=== PATIENT | female | born 1980 | race African-American/Black ===

== ENCOUNTER 2018-11-07 07:09 | Emergency (ER) | payer OTHER ==
[~2018-11-07] VITALS: Ht 165.1 cm; Wt 84.0 kg
[2018-11-07 07:55] VITALS: BP 141/88
[2018-11-07 09:08] LABS: CLARITY URINE CLEAR (CLEAR); COLOR URINE YELLOW (YELLOW); KETONES URINE 1+ (NEGATIVE); LEUKOCYTE ESTERASE URINE NEGATIVE (NEGATIVE); NITRITE URINE NEGATIVE (NEGATIVE); OCCULT BLOOD URINE NEGATIVE (NEGATIVE); PH URINE 5.5 (4.5-8.0); PROTEIN URINE NEGATIVE (NEGATIVE); SPECIFIC GRAVITY URINE 1.018 (1.005-1.030); UROBILINOGEN URINE 0.2 E.U./dL (0.2-1.0)
== END 2018-11-07 08:30 | disposition left against medical advice (07) ==
LOC: ER 07:09
DX: R11.2 Nausea with vomiting, unspecified (principal); R10.13 Epigastric pain; Z53.21 Procedure and treatment not carried out due to patient leaving prior to being seen by health care provider
CPT/HCPCS: 81025

== ENCOUNTER 2020-07-20 16:11 | Emergency (ER) | payer MEDICAID, OTHER ==
[~2020-07-20] VITALS: Ht 162.6 cm; Wt 68.0 kg
[2020-07-20] MEDS ORDERED: PREDNISONE 20MG TABLET PO STA (16:28)
[2020-07-20] MEDS ORDERED: IPRATROPIUM BROMIDE (0.02%) 0.5MG/2.5ML NEB HHN STA (16:28)
[2020-07-20] MEDS ORDERED: ALBUTEROL (0.083%) 2.5MG/3ML NEB HHN STA (16:28)
[2020-07-20 18:20] VITALS: BP 142/81
== END 2020-07-20 18:24 | disposition home or self-care (01) ==
LOC: ER 16:11
DX: J45.901 Unspecified asthma with (acute) exacerbation (principal); Z88.0 Allergy status to penicillin
CPT/HCPCS: 71045; 94640; 99283; J7512; Z7610

== ENCOUNTER 2022-04-24 18:53 | Emergency (ER) | payer MEDICAID ==
[~2022-04-24] VITALS: Ht 167.6 cm; Wt 82.0 kg
[2022-04-24] MEDS ORDERED: LIDOCAINE HCL/EPINEPHRINE 1%-EPI 1:100,000 20 ML VIAL INFIL ONE (19:45)
[2022-04-24] MEDS ORDERED: LIDOCAINE HCL/EPINEPHRINE 1%-EPI 1:100,000 10 ML VIAL INFIL SCH (20:00)
[2022-04-24] MEDS ORDERED: TOPUD MT (20:03)
[2022-04-24] MEDS ORDERED: CLIN-194 MT (20:03)
[2022-04-24 22:01] VITALS: BP 125/78
== END 2022-04-24 22:02 | disposition home or self-care (01) ==
LOC: ER 18:53
DX: L02.212 Cutaneous abscess of back [any part, except buttock and flank] (principal); J45.909 Unspecified asthma, uncomplicated; Z88.0 Allergy status to penicillin
CPT/HCPCS: 10060; 99283; J3490; Z7610

== ENCOUNTER 2022-06-22 10:34 | Emergency (ER) | payer MEDICAID ==
[~2022-06-22] VITALS: Ht 167.6 cm; Wt 77.5 kg
[~2022-06-22 10:34] MED LIST: CLIN-194 MT; TOPUD MT
[2022-06-22] MEDS ORDERED: KETOROLAC 60MG/2ML VIAL IM ONE (11:45)
[2022-06-22 12:25] VITALS: BP 118/75
[2022-06-22] MEDS ORDERED: CYCL10TA21 MT (13:06)
== END 2022-06-22 13:17 | disposition home or self-care (01) ==
LOC: ER 10:45
DX: M54.18 Radiculopathy, sacral and sacrococcygeal region (principal); J45.909 Unspecified asthma, uncomplicated; Z88.0 Allergy status to penicillin; Z98.890 Other specified postprocedural states
CPT/HCPCS: 72220; 81025; 96372; 99283; J1885

== ENCOUNTER 2023-01-19 10:57 | Emergency (ER) | payer MEDICAID ==
[~2023-01-19] VITALS: Ht 165.1 cm; Wt 72.3 kg
[~2023-01-19 10:57] MED LIST changes: +CYCL10TA21 MT
[2023-01-19 11:25] LABS: BASOPHILS % 0.6 % (0.0-2.0); EOSINOPHILS % 0.4 % (0.0-5.0); HEMATOCRIT. 41.2 % (36.0-48.0); HEMOGLOBIN. 14.1 g/dL (12.0-16.0); LYMPHOCYTES % 31.7 % (20.0-50.0); MEAN CORPUSCULAR HEMOGLOBIN 32.6 pg (28.0-32.0); MEAN CORPUSCULAR VOLUME 95.6 fL (81.0-99.0); MEAN PLATELET VOLUME 7.6 fl (7.4-10.4); NEUTROPHILS % 61.3 % (40.0-76.0); PLATELET 294 x1000/uL (130-400); RED BLOOD CELL COUNT 4.31 mill/uL (4.2-5.4); RED CELL DISTRIBUTION WIDTH 13.1 % (11.6-14.6)
[2023-01-19 11:34] LABS: CHLORIDE 99 mEq/L (98-107)
[2023-01-19 12:00] LABS: CLARITY URINE CLEAR (CLEAR); COLOR URINE YELLOW (YELLOW); KETONES URINE 2+ (NEGATIVE); LEUKOCYTE ESTERASE URINE NEGATIVE (NEGATIVE); NITRITE URINE NEGATIVE (NEGATIVE); OCCULT BLOOD URINE NEGATIVE (NEGATIVE); PH URINE 6.5 (4.5-8.0); PROTEIN URINE NEGATIVE (NEGATIVE); SPECIFIC GRAVITY URINE 1.034 (1.005-1.030); UROBILINOGEN URINE 0.2 E.U./dL (0.2-1.0)
[2023-01-19] MEDS ORDERED: KETOROLAC 60MG/2ML VIAL IM ONE (13:00)
[2023-01-19] MEDS ORDERED: OMEP40CA20 MT (14:07)
[2023-01-19 14:45] VITALS: BP 150/85
== END 2023-01-21 16:32 | disposition home or self-care (01) ==
LOC: ER 10:58
DX: R10.32 Left lower quadrant pain (principal); J45.909 Unspecified asthma, uncomplicated; Z98.890 Other specified postprocedural states
CPT/HCPCS: 36415; 74176; 80053; 81003; 81025; 83690; 85025; 93005; 96372; 99285; J1885

== ENCOUNTER 2023-07-28 02:47 | Inpatient (IN) | payer SELFPAY ==
[~2023-07-28] VITALS: Ht 153.7 cm; Wt 72.6 kg
[~2023-07-28 02:47] MED LIST changes: +OMEP40CA20 MT
[2023-07-28 02:52] VITALS: O2SAT 100
[2023-07-28 03:50] LABS: BASOPHILS % 0.7 % (0.0-2.0); EOSINOPHILS % 0.2 % (0.0-5.0); HEMATOCRIT. 40.4 % (36.0-48.0); HEMOGLOBIN. 13.8 g/dL (12.0-16.0); LYMPHOCYTES % 14.8 % (20.0-50.0); MEAN CORPUSCULAR HGB CONC 34.1 g/dL (31.0-37.0); MEAN CORPUSCULAR VOLUME 96.7 fL (81.0-99.0); MEAN PLATELET VOLUME 8.3 fl (7.4-10.4); MONOCYTES % 3.7 % (2.0-8.0); NEUTROPHILS % 80.6 % (40.0-76.0); PLATELET 300 x1000/uL (130-400); RED BLOOD CELL COUNT 4.18 mill/uL (4.2-5.4); RED CELL DISTRIBUTION WIDTH 13.6 % (11.6-14.6); WHITE BLOOD COUNT 7.3 x1000/uL (4.5-11.0)
[2023-07-28 04:13] LABS: ALANINE AMINOTRANSFERASE 31 IU/L (10-49); ALBUMIN 4.7 g/dL (3.2-4.8); ASPARTATE AMINOTRANSFERASE 31 IU/L (<34); BILIRUBIN TOTAL 0.8 mg/dL (0.1-1.0); CALCIUM 10.4 mg/dL (8.7-10.4); CARBON DIOXIDE 27 mEq/L (21-32); CHLORIDE 99 mEq/L (98-107); CREATININE 0.9 mg/dL (0.6-1.0); GLUCOSE 399 mg/dL (70-105); PROTEIN TOTAL 7.5 g/dL (6.0-8.3); SODIUM 135 mEq/L (136-145); UREA NITROGEN BLOOD 7 mg/dL (9-23)
[2023-07-28 04:24] LABS: CLARITY URINE CLOUDY (CLEAR); COLOR URINE YELLOW (YELLOW); PROTEIN URINE NEGATIVE (NEGATIVE); SPECIFIC GRAVITY URINE 1.046 (1.005-1.030)
[2023-07-28 04:25] LABS: GLUCOSE URINE 3+ (NEGATIVE); KETONES URINE 3+ (NEGATIVE); LEUKOCYTE ESTERASE URINE NEGATIVE (NEGATIVE); NITRITE URINE NEGATIVE (NEGATIVE); OCCULT BLOOD URINE NEGATIVE (NEGATIVE); UROBILINOGEN URINE 0.2 E.U./dL (0.2-1.0)
[2023-07-28 04:26] LABS: BACTERIA URINE NONE SEEN; RBC URINE NONE SEEN /hpf (0-2); SQUAMOUS EPITHELIAL CELL URINE FEW /lpf (RARE/1+); WBC URINE 0-2 /hpf (0-2)
[2023-07-28 04:55] LABS: TROPONIN I HIGH SENSITIVITY < 4 ng/L (3.0-34)
[2023-07-28] MEDS ORDERED: ONDANSETRON HCL 4MG/2ML INJ IV STA (05:19)
[2023-07-28] MEDS ORDERED: KETOROLAC 30MG/ML VIAL IV STA (05:19)
[2023-07-28] MEDS ORDERED: MORPHINE SULFATE 4 MG/ML CPJ (NOT FOR IM USE) IV STA (07:38)
[2023-07-28] MEDS ORDERED: METOCLOPRAMIDE HCL 10MG/2ML VIAL IV ONE (07:45)
[2023-07-28] MEDS ORDERED: SODIUM CHLORIDE 0.9% 1,000 ML IV ONE (07:45)
[2023-07-28] MEDS ORDERED: CLONIDINE 0.1MG TABLET PO PRN (11:15)
[2023-07-28] MEDS ORDERED: IPRATROPIUM/ALBUTEROL 0.5-3(2.5)MG/3ML NEB HHN PRN (11:15)
[2023-07-28] MEDS ORDERED: DEXTROSE 50% WATER 50ML SYRINGE IV PRN (11:15)
[2023-07-28] MEDS ORDERED: DIPHENHYDRAMINE 50MG/ML VIAL IV PRN (11:15)
[2023-07-28] MEDS ORDERED: NALOXONE HCL 0.4MG/ML VIAL IV PRN (11:30)
[2023-07-28 12:00] VITALS: BP 117/77; PULSE 73; RESP 18; TEMP 97.1
[2023-07-28] MEDS: SODIUM CHLORIDE 0.9% 1,000 ML IV SCH (12:14)
[2023-07-28] MEDS: BLOOD SUGAR DIAGNOSTIC STRIP TEST SCH ×3 (12:20→21:00)
[2023-07-28] MEDS: ONDANSETRON HCL 4MG/2ML INJ IV PRN (14:10)
[2023-07-28] MEDS: INSULIN LISPRO 100 UNITS/ML SUBCUT SCH ×3 (14:13→21:00)
[2023-07-28 16:05] VITALS: BP 102/64; PULSE 88; RESP 19; TEMP 97.5
[2023-07-28] MEDS: ACETAMINOPHEN 325MG TABLET PO PRN (18:04)
[2023-07-29] MEDS: ONDANSETRON HCL 4MG/2ML INJ IV PRN ×4 (02:38→21:00)
[2023-07-29] MEDS: SODIUM CHLORIDE 0.9% 1,000 ML IV SCH ×2 (02:38→13:51)
[2023-07-29 04:00] VITALS: BP 123/72; PULSE 91; RESP 19; TEMP 97.7
[2023-07-29] MEDS: ACETAMINOPHEN 325MG TABLET PO PRN (04:57)
[2023-07-29] MEDS: BLOOD SUGAR DIAGNOSTIC STRIP TEST SCH ×3 (07:20→17:20)
[2023-07-29 07:40] LABS: BASOPHILS % 0.7 % (0.0-2.0); EOSINOPHILS % 0.3 % (0.0-5.0); HEMATOCRIT. 39.4 % (36.0-48.0); HEMOGLOBIN. 13.4 g/dL (12.0-16.0); LYMPHOCYTES % 27.3 % (20.0-50.0); MEAN CORPUSCULAR HEMOGLOBIN 32.7 pg (28.0-32.0); MEAN CORPUSCULAR HGB CONC 33.9 g/dL (31.0-37.0); MEAN CORPUSCULAR VOLUME 96.6 fL (81.0-99.0); MEAN PLATELET VOLUME 8.5 fl (7.4-10.4); MONOCYTES % 7.8 % (2.0-8.0); NEUTROPHILS % 63.9 % (40.0-76.0); PLATELET 271 x1000/uL (130-400); RED BLOOD CELL COUNT 4.08 mill/uL (4.2-5.4); RED CELL DISTRIBUTION WIDTH 13.3 % (11.6-14.6); WHITE BLOOD COUNT 5.5 x1000/uL (4.5-11.0)
[2023-07-29 07:42] LABS: ALANINE AMINOTRANSFERASE 27 IU/L (10-49); ALBUMIN 3.9 g/dL (3.2-4.8); ASPARTATE AMINOTRANSFERASE 21 IU/L (<34); BILIRUBIN TOTAL 0.8 mg/dL (0.1-1.0); CALCIUM 9.1 mg/dL (8.7-10.4); CARBON DIOXIDE 28 mEq/L (21-32); CHLORIDE 100 mEq/L (98-107); CREATININE 0.9 mg/dL (0.6-1.0); GLUCOSE 258 mg/dL (70-105); POTASSIUM 4.4 mEq/L (3.5-5.1); PROTEIN TOTAL 6.3 g/dL (6.0-8.3); SODIUM 136 mEq/L (136-145); UREA NITROGEN BLOOD 11 mg/dL (9-23)
[2023-07-29 08:00] VITALS: BP 111/65; PULSE 73; RESP 20; TEMP 98
[2023-07-29] MEDS: INSULIN LISPRO 100 UNITS/ML SUBCUT SCH ×3 (08:23→17:50)
[2023-07-29] MEDS: MORPHINE SULFATE 2 MG/ML CPJ (NOT FOR IM USE) IV PRN ×2 (08:34→13:56)
[2023-07-29 12:26] VITALS: BP 139/73; RESP 18; TEMP 98
[2023-07-29 16:13] VITALS: BP 110/70; PULSE 82; RESP 18; TEMP 98
[2023-07-29 20:00] VITALS: BP 165/87; PULSE 64; RESP 18; TEMP 97
[2023-07-30] VITALS: BP 136/76; PULSE 60; RESP 18; TEMP 98.5
[2023-07-30] MEDS: SODIUM CHLORIDE 0.9% 1,000 ML IV SCH ×2 (03:15→16:35)
[2023-07-30 04:00] VITALS: BP 106/53; PULSE 85; RESP 18; TEMP 97.5
[2023-07-30] MEDS: ONDANSETRON HCL 4MG/2ML INJ IV PRN ×3 (04:12→17:17)
[2023-07-30 06:56] LABS: BASOPHILS % 0.7 % (0.0-2.0); EOSINOPHILS % 0.9 % (0.0-5.0); HEMATOCRIT. 39.7 % (36.0-48.0); HEMOGLOBIN. 13.4 g/dL (12.0-16.0); LYMPHOCYTES % 37.4 % (20.0-50.0); MEAN CORPUSCULAR HEMOGLOBIN 32.7 pg (28.0-32.0); MEAN CORPUSCULAR HGB CONC 33.8 g/dL (31.0-37.0); MEAN CORPUSCULAR VOLUME 96.9 fL (81.0-99.0); MEAN PLATELET VOLUME 8.7 fl (7.4-10.4); MONOCYTES % 6.7 % (2.0-8.0); NEUTROPHILS % 54.3 % (40.0-76.0); PLATELET 264 x1000/uL (130-400); RED BLOOD CELL COUNT 4.09 mill/uL (4.2-5.4); RED CELL DISTRIBUTION WIDTH 13.4 % (11.6-14.6); WHITE BLOOD COUNT 4.6 x1000/uL (4.5-11.0)
[2023-07-30 07:17] LABS: CALCIUM 9.2 mg/dL (8.7-10.4); CARBON DIOXIDE 24 mEq/L (21-32); CHLORIDE 102 mEq/L (98-107); CREATININE 0.8 mg/dL (0.6-1.0); GLUCOSE 210 mg/dL (70-105); SODIUM 136 mEq/L (136-145); UREA NITROGEN BLOOD 7 mg/dL (9-23)
[2023-07-30 08:00] VITALS: BP 105/71; PULSE 79; RESP 20; TEMP 98.8
[2023-07-30] MEDS: INSULIN LISPRO 100 UNITS/ML SUBCUT SCH ×4 (08:09→21:37)
[2023-07-30] MEDS: BLOOD SUGAR DIAGNOSTIC STRIP TEST SCH ×4 (08:17→20:52)
[2023-07-30] MEDS ORDERED: ONDA4TAB50 MT (11:19)
[2023-07-30] MEDS ORDERED: METO-293 MT (11:19)
[2023-07-30] MEDS ORDERED: METF-414 MT (11:19)
[2023-07-30] MEDS ORDERED: INSU100I28 SQ (11:19)
[2023-07-30] MEDS: METOCLOPRAMIDE HCL 10MG/2ML VIAL IV SCH ×2 (11:25→17:24)
[2023-07-30] MEDS: MORPHINE SULFATE 2 MG/ML CPJ (NOT FOR IM USE) IV PRN (12:41)
[2023-07-30] MEDS: METFORMIN HCL 500MG TABLET PO SCH (17:17)
[2023-07-30 20:00] VITALS: BP 116/75; PULSE 80; RESP 18; TEMP 97.1
[2023-07-30] MEDS: INSULIN GLARGINE 100 UNITS/ML SUBCUT SCH (21:38)
[2023-07-31] VITALS: BP 123/70; PULSE 68; RESP 18; TEMP 97.8
[2023-07-31] MEDS: METOCLOPRAMIDE HCL 10MG/2ML VIAL IV SCH ×4 (00:52→17:46)
[2023-07-31 04:00] VITALS: BP 110/64; PULSE 72; RESP 18; TEMP 98.2
[2023-07-31] MEDS: SODIUM CHLORIDE 0.9% 1,000 ML IV SCH (05:55)
[2023-07-31] MEDS: BLOOD SUGAR DIAGNOSTIC STRIP TEST SCH ×4 (06:34→20:22)
[2023-07-31 08:00] VITALS: BP 106/69; PULSE 79; RESP 17; TEMP 96.9
[2023-07-31] MEDS: METFORMIN HCL 500MG TABLET PO SCH ×2 (08:18→17:48)
[2023-07-31] MEDS: INSULIN LISPRO 100 UNITS/ML SUBCUT SCH ×4 (08:20→21:00)
[2023-07-31 12:00] VITALS: BP 135/79; PULSE 79; RESP 16; TEMP 98.4
[2023-07-31] MEDS: ACETAMINOPHEN 325MG TABLET PO PRN (12:39)
[2023-07-31 16:00] VITALS: BP 124/79; PULSE 89; RESP 17; TEMP 98.8
[2023-07-31 20:00] VITALS: BP 114/75; PULSE 72; RESP 18; TEMP 97.3
[2023-07-31] MEDS: INSULIN GLARGINE 100 UNITS/ML SUBCUT SCH (21:40)
== END 2023-07-31 21:54 | disposition home or self-care (01) | DRG 48 ==
LOC: ER 02:47 → 6WST 09:46
PROVIDERS: ADMIT Internal Medicine; ATTEND Internal Medicine
DX: E11.43 Type 2 diabetes mellitus with diabetic autonomic (poly)neuropathy (principal); E11.65 Type 2 diabetes mellitus with hyperglycemia; K31.84 Gastroparesis; J45.909 Unspecified asthma, uncomplicated; F17.200 Nicotine dependence, unspecified, uncomplicated; Z98.891 History of uterine scar from previous surgery; Z88.0 Allergy status to penicillin
CPT/HCPCS: 36415; 80048; 80053; 81003; 82962; 83036; 84484; 85025; 93005; 93970; 99285; J1815; J1885; J2270; J2405; J2765; J7030

== ENCOUNTER 2023-08-12 11:31 | Emergency (ER) | payer SELFPAY ==
[~2023-08-12] VITALS: Ht 167.6 cm; Wt 74.0 kg
[~2023-08-12 11:31] MED LIST changes: -CLIN-194 MT; +INSU100I28 SQ; +METF-414 MT; +METO-293 MT; +ONDA4TAB50 MT
[2023-08-12 11:43] VITALS: BP 103/66; O2SAT 99
[2023-08-12 14:24] LABS: BASOPHILS % 0.8 % (0.0-2.0); EOSINOPHILS % 1.2 % (0.0-5.0); HEMATOCRIT. 34.3 % (36.0-48.0); LYMPHOCYTES % 44.3 % (20.0-50.0); MEAN CORPUSCULAR HEMOGLOBIN 33.8 pg (28.0-32.0); MEAN CORPUSCULAR VOLUME 96.7 fL (81.0-99.0); MEAN PLATELET VOLUME 7.1 fl (7.4-10.4); MONOCYTES % 6.2 % (2.0-8.0); NEUTROPHILS % 47.5 % (40.0-76.0); PLATELET 314 x1000/uL (130-400); RED BLOOD CELL COUNT 3.55 mill/uL (4.2-5.4); RED CELL DISTRIBUTION WIDTH 13.3 % (11.6-14.6); WHITE BLOOD COUNT 4.6 x1000/uL (4.5-11.0)
[2023-08-12 14:40] LABS: ALANINE AMINOTRANSFERASE 19 IU/L (10-49); ALBUMIN 4.2 g/dL (3.2-4.8); ASPARTATE AMINOTRANSFERASE 13 IU/L (<34); BILIRUBIN TOTAL 0.4 mg/dL (0.1-1.0); CALCIUM 9.2 mg/dL (8.7-10.4); CARBON DIOXIDE 30 mEq/L (21-32); CHLORIDE 102 mEq/L (98-107); CREATININE 0.7 mg/dL (0.6-1.0); GLUCOSE 168 mg/dL (70-105); PROTEIN TOTAL 6.9 g/dL (6.0-8.3); SODIUM 136 mEq/L (136-145); UREA NITROGEN BLOOD 10 mg/dL (9-23)
[2023-08-12] MEDS ORDERED: NAPR-681 PO (15:47)
[2023-08-12] MEDS ORDERED: DOXY-456 MT (15:47)
[2023-08-12] MEDS ORDERED: GABA-532 PO (15:47)
[2023-08-12 16:09] VITALS: PULSE 88; RESP 16; TEMP 98.1
== END 2023-08-12 16:15 | disposition home or self-care (01) ==
LOC: ER 11:32
DX: L03.116 Cellulitis of left lower limb (principal); M54.32 Sciatica, left side; J45.909 Unspecified asthma, uncomplicated; E11.9 Type 2 diabetes mellitus without complications; Z98.890 Other specified postprocedural states; Z79.899 Other long term (current) drug therapy
CPT/HCPCS: 36415; 80053; 85025; 93971; 99284

== ENCOUNTER 2023-10-01 15:49 | Emergency (ER) | payer SELFPAY ==
[~2023-10-01] VITALS: Ht 167.6 cm; Wt 72.0 kg
[~2023-10-01 15:49] MED LIST changes: +DOXY-456 MT; +GABA-532 PO; +NAPR-681 PO
[2023-10-01 15:58] VITALS: TEMP 98.4; O2SAT 100
[2023-10-01 16:59] LABS: CLARITY URINE CLOUDY (CLEAR); COLOR URINE ORANGE (YELLOW); GLUCOSE URINE 2+ (NEGATIVE); KETONES URINE 4+ (NEGATIVE); LEUKOCYTE ESTERASE URINE TRACE (NEGATIVE); NITRITE URINE NEGATIVE (NEGATIVE); OCCULT BLOOD URINE 3+ (NEGATIVE); PH URINE 8.5 (4.5-8.0); PROTEIN URINE 1+ (NEGATIVE); SPECIFIC GRAVITY URINE 1.043 (1.005-1.030)
[2023-10-01 17:15] LABS: RBC URINE TNTC /hpf (0-2); SQUAMOUS EPITHELIAL CELL URINE FEW /lpf (RARE/1+); WBC URINE 0-2 /hpf (0-2)
[2023-10-01 17:16] LABS: BACTERIA URINE TRACE
[2023-10-01 18:05] LABS: BASOPHILS % 0.6 % (0.0-2.0); EOSINOPHILS % 0.1 % (0.0-5.0); HEMATOCRIT. 38.5 % (36.0-48.0); HEMOGLOBIN. 13.2 g/dL (12.0-16.0); LYMPHOCYTES % 16.8 % (20.0-50.0); MEAN CORPUSCULAR HEMOGLOBIN 33.4 pg (28.0-32.0); MEAN CORPUSCULAR HGB CONC 34.2 g/dL (31.0-37.0); MEAN CORPUSCULAR VOLUME 97.7 fL (81.0-99.0); MEAN PLATELET VOLUME 8.8 fl (7.4-10.4); MONOCYTES % 3.4 % (2.0-8.0); NEUTROPHILS % 79.1 % (40.0-76.0); PLATELET 257 x1000/uL (130-400); RED BLOOD CELL COUNT 3.94 mill/uL (4.2-5.4); RED CELL DISTRIBUTION WIDTH 12.9 % (11.6-14.6); WHITE BLOOD COUNT 5.1 x1000/uL (4.5-11.0)
[2023-10-01 18:15] LABS: ALANINE AMINOTRANSFERASE 23 IU/L (10-49); ASPARTATE AMINOTRANSFERASE 19 IU/L (<34); CALCIUM 10.3 mg/dL (8.7-10.4); CARBON DIOXIDE 25 mEq/L (21-32); CHLORIDE 102 mEq/L (98-107); CREATININE 0.8 mg/dL (0.6-1.0); GLUCOSE 287 mg/dL (70-105); PROTEIN TOTAL 7.7 g/dL (6.0-8.3); SODIUM 136 mEq/L (136-145); UREA NITROGEN BLOOD 12 mg/dL (9-23)
[2023-10-01] MEDS: KETOROLAC 30MG/ML VIAL IV STA (21:44)
[2023-10-01] MEDS: ONDANSETRON HCL 4MG/2ML INJ IV STA (21:44)
[2023-10-01] MEDS: SODIUM CHLORIDE 0.9% 1,000 ML IV ONE (21:44)
[2023-10-01] MEDS ORDERED: ONDA4TAB50 MT (22:22)
[2023-10-01 22:49] VITALS: BP 123/66; PULSE 98; RESP 15
== END 2023-10-01 22:50 | disposition home or self-care (01) ==
LOC: ER 15:49
DX: R10.9 Unspecified abdominal pain (principal); R11.2 Nausea with vomiting, unspecified; J45.909 Unspecified asthma, uncomplicated; E11.9 Type 2 diabetes mellitus without complications; Z98.890 Other specified postprocedural states; Z88.0 Allergy status to penicillin
CPT/HCPCS: 80053; 81003; 82962; 83690; 85025; 36415; 74176; 96374; 96375; 99285; J1885; J2405; J7030; Z7610 ×3

== ENCOUNTER 2023-10-24 11:05 | Emergency (ER) | payer SELFPAY ==
[~2023-10-24] VITALS: Ht 165.1 cm; Wt 72.6 kg
[2023-10-24 11:15] VITALS: O2SAT 100
[2023-10-24 11:53] LABS: BASOPHILS % 0.4 % (0.0-2.0); HEMATOCRIT. 42.2 % (36.0-48.0); HEMOGLOBIN. 14.5 g/dL (12.0-16.0); LYMPHOCYTES % 14.9 % (20.0-50.0); MEAN CORPUSCULAR HEMOGLOBIN 33.6 pg (28.0-32.0); MEAN CORPUSCULAR HGB CONC 34.4 g/dL (31.0-37.0); MEAN CORPUSCULAR VOLUME 97.8 fL (81.0-99.0); MONOCYTES % 4.2 % (2.0-8.0); NEUTROPHILS % 80.5 % (40.0-76.0); PLATELET 256 x1000/uL (130-400); RED BLOOD CELL COUNT 4.31 mill/uL (4.2-5.4); RED CELL DISTRIBUTION WIDTH 13.5 % (11.6-14.6); WHITE BLOOD COUNT 5.7 x1000/uL (4.5-11.0)
[2023-10-24 12:17] LABS: HCG SCREEN NEGATIVE
[2023-10-24 12:24] LABS: ALANINE AMINOTRANSFERASE 29 IU/L (10-49); ALBUMIN 5.3 g/dL (3.2-4.8); ASPARTATE AMINOTRANSFERASE 17 IU/L (<34); BILIRUBIN TOTAL 0.9 mg/dL (0.1-1.0); CARBON DIOXIDE 25 mEq/L (21-32); CHLORIDE 100 mEq/L (98-107); CREATININE 0.9 mg/dL (0.6-1.0); GLUCOSE 325 mg/dL (70-105); POTASSIUM 4.2 mEq/L (3.5-5.1); PROTEIN TOTAL 8.5 g/dL (6.0-8.3); SODIUM 133 mEq/L (136-145); UREA NITROGEN BLOOD 12 mg/dL (9-23)
[2023-10-24] MEDS: DIPHENHYDRAMINE 50MG/ML VIAL IM PRN (13:39)
[2023-10-24] MEDS: LORAZEPAM 2MG/ML INJ IM ONE (13:39)
[2023-10-24] MEDS: HALOPERIDOL LACTATE 5MG/ML VIAL IM ONE (13:39)
[2023-10-24] MEDS ORDERED: ONDA4TAB11 PO (14:32)
[2023-10-24 15:22] VITALS: BP 110/56; PULSE 90; RESP 17; TEMP 98
== END 2023-10-24 15:25 | disposition home or self-care (01) ==
LOC: ER 11:05
DX: R11.2 Nausea with vomiting, unspecified (principal); R10.816 Epigastric abdominal tenderness; J45.909 Unspecified asthma, uncomplicated; E11.9 Type 2 diabetes mellitus without complications; Z88.0 Allergy status to penicillin; Z98.890 Other specified postprocedural states
CPT/HCPCS: 80053; 84703; 83690; 85025; 36415; 96372; 99284; J1200; J1630; J2060; Z7610 ×2

== ENCOUNTER 2024-01-28 03:25 | Emergency (ER) | payer MEDICAID ==
[~2024-01-28] VITALS: Ht 175.3 cm; Wt 77.0 kg
[~2024-01-28 03:25] MED LIST changes: +ONDA4TAB11 PO
[2024-01-28 03:35] VITALS: O2SAT 95
[2024-01-28] MEDS: MAGNESIUM/ALUMINUM HYDROXIDE/SIMETHICONE 30ML UDC PO STA (03:49)
[2024-01-28 04:11] LABS: BASOPHILS % 0.6 % (0.0-2.0); EOSINOPHILS % 0.1 % (0.0-5.0); HEMATOCRIT. 43.2 % (36.0-48.0); HEMOGLOBIN. 15.1 g/dL (12.0-16.0); LYMPHOCYTES % 22.1 % (20.0-50.0); MEAN CORPUSCULAR HEMOGLOBIN 33.5 pg (28.0-32.0); MEAN CORPUSCULAR HGB CONC 34.9 g/dL (31.0-37.0); MEAN CORPUSCULAR VOLUME 96.1 fL (81.0-99.0); MEAN PLATELET VOLUME 7.9 fl (7.4-10.4); MONOCYTES % 5.3 % (2.0-8.0); NEUTROPHILS % 71.9 % (40.0-76.0); PLATELET 303 x1000/uL (130-400); RED BLOOD CELL COUNT 4.49 mill/uL (4.2-5.4); RED CELL DISTRIBUTION WIDTH 13.2 % (11.6-14.6)
[2024-01-28 04:16] LABS: CHLORIDE 96 mEq/L (98-107); POTASSIUM 4.1 mEq/L (3.5-5.1); SODIUM 131 mEq/L (136-145)
[2024-01-28 04:17] LABS: CALCIUM 10.6 mg/dL (8.7-10.4); CARBON DIOXIDE 22 mEq/L (21-32)
[2024-01-28 04:22] LABS: GLUCOSE 334 mg/dL (70-105); UREA NITROGEN BLOOD 13 mg/dL (9-23)
[2024-01-28 04:24] LABS: ALANINE AMINOTRANSFERASE 29 IU/L (10-49); ALBUMIN 5.4 g/dL (3.2-4.8); ASPARTATE AMINOTRANSFERASE 19 IU/L (<34); BILIRUBIN DIRECT 0.3 mg/dL (<=3.0); BILIRUBIN TOTAL 0.9 mg/dL (0.1-1.0); PROTEIN TOTAL 7.9 g/dL (6.0-8.3)
[2024-01-28 04:26] LABS: HCG SCREEN NEGATIVE
[2024-01-28 04:27] LABS: ETHANOL BLOOD < 10 mg/dL (<10)
[2024-01-28] MEDS: ONDANSETRON HCL 4MG/2ML INJ IV STA (04:27)
[2024-01-28] MEDS: ACETAMINOPHEN 1000MG/100ML 100 ML IV ONE (04:33)
[2024-01-28] MEDS: HALOPERIDOL LACTATE 5MG/ML VIAL IM ONE (05:19)
[2024-01-28] MEDS: SODIUM CHLORIDE 0.9% 1,000 ML IV ONE (05:20)
[2024-01-28] MEDS: MORPHINE SULFATE 4 MG/ML INJ (FOR IV/IM USE) IV ONE (06:13)
[2024-01-28 08:02] VITALS: BP 110/74; PULSE 80; RESP 18; TEMP 98
== END 2024-01-28 08:10 | disposition home or self-care (01) ==
LOC: ER 03:25
DX: K31.84 Gastroparesis (principal); R11.2 Nausea with vomiting, unspecified; F41.9 Anxiety disorder, unspecified; E11.9 Type 2 diabetes mellitus without complications; Z98.890 Other specified postprocedural states; Z88.0 Allergy status to penicillin
CPT/HCPCS: 80076; 80048; 80320; 84703; 83690; 85025; 85610; 36415; 96361; 96365; 96372; 96375; 99284; J1630; J2405; J2270; J7030; Z7610 ×2; G0480; J0131

== ENCOUNTER 2024-02-17 14:23 | Emergency (ER) | payer MEDICAID ==
[~2024-02-17] VITALS: Ht 167.6 cm; Wt 68.0 kg
[2024-02-17 14:30] VITALS: BP 107/66; PULSE 99; RESP 19; TEMP 98.2; O2SAT 100
[2024-02-17] MEDS ORDERED: SULF1TAB48 MT (15:46)
[2024-02-17] MEDS ORDERED: DOXY100C5 MT (15:46)
[2024-02-17] MEDS: ACETAMINOPHEN 325MG TABLET PO ONE (15:50)
== END 2024-02-17 15:57 | disposition home or self-care (01) ==
LOC: ER 14:23
DX: L02.31 Cutaneous abscess of buttock (principal); E11.9 Type 2 diabetes mellitus without complications; J45.909 Unspecified asthma, uncomplicated; Z88.0 Allergy status to penicillin; Z79.899 Other long term (current) drug therapy; Z98.890 Other specified postprocedural states
CPT/HCPCS: 99283

== ENCOUNTER 2024-05-27 20:12 | Emergency (ER) | payer MEDICAID, OTHER ==
[~2024-05-27] VITALS: Ht 165.1 cm; Wt 70.0 kg
[~2024-05-27 20:12] MED LIST changes: -DOXY-456 MT; +DOXY100C5 MT; +DOXY100C74 MT; +ONDA-239 PO; -ONDA4TAB11 PO; +SULF1TAB48 MT
[2024-05-27 20:19] VITALS: O2SAT 100
[2024-05-27 21:03] LABS: BASOPHILS % 0.5 % (0.0-2.0); HEMATOCRIT. 41.7 % (36.0-48.0); HEMOGLOBIN. 13.7 g/dL (12.0-16.0); LYMPHOCYTES % 9.7 % (20.0-50.0); MEAN CORPUSCULAR HEMOGLOBIN 31.7 pg (28.0-32.0); MEAN PLATELET VOLUME 7.9 fl (7.4-10.4); MONOCYTES % 2.1 % (2.0-8.0); NEUTROPHILS % 87.7 % (40.0-76.0); PLATELET 357 x1000/uL (130-400); RED BLOOD CELL COUNT 4.34 mill/uL (4.2-5.4); RED CELL DISTRIBUTION WIDTH 13.2 % (11.6-14.6)
[2024-05-27 21:08] LABS: CARBON DIOXIDE 22 mEq/L (21-32); CHLORIDE 101 mEq/L (98-107); SODIUM 137 mEq/L (136-145)
[2024-05-27 21:09] LABS: CALCIUM 10.7 mg/dL (8.7-10.4)
[2024-05-27 21:14] LABS: GLUCOSE 349 mg/dL (70-105); UREA NITROGEN BLOOD 15 mg/dL (9-23)
[2024-05-27 21:15] LABS: ALANINE AMINOTRANSFERASE 35 IU/L (10-49); ALBUMIN 5.2 g/dL (3.2-4.8); ASPARTATE AMINOTRANSFERASE 28 IU/L (<34)
[2024-05-27 21:16] LABS: BILIRUBIN TOTAL 0.6 mg/dL (0.1-1.0); PROTEIN TOTAL 7.9 g/dL (6.0-8.3); TROPONIN I HIGH SENSITIVITY < 4 ng/L (3.0-34)
[2024-05-27] MEDS: HALOPERIDOL LACTATE 5MG/ML VIAL IM ONE (21:19)
[2024-05-27 21:35] LABS: HCG SCREEN NEGATIVE
[2024-05-27 23:00] LABS: CLARITY URINE CLEAR (CLEAR); COLOR URINE YELLOW (YELLOW); GLUCOSE URINE 3+ (NEGATIVE); KETONES URINE 3+ (NEGATIVE); LEUKOCYTE ESTERASE URINE NEGATIVE (NEGATIVE); NITRITE URINE NEGATIVE (NEGATIVE); OCCULT BLOOD URINE NEGATIVE (NEGATIVE); PH URINE 5.5 (4.5-8.0); PROTEIN URINE TRACE (NEGATIVE); SPECIFIC GRAVITY URINE 1.044 (1.005-1.030); UROBILINOGEN URINE 0.2 E.U./dL (0.2-1.0)
[2024-05-27 23:06] LABS: TROPONIN I HIGH SENSITIVITY < 4 ng/L (3.0-34)
[2024-05-27 23:15] LABS: WBC URINE NONE SEEN /hpf (0-2)
[2024-05-27 23:16] LABS: BACTERIA URINE NONE SEEN; RBC URINE NONE SEEN /hpf (0-2); SQUAMOUS EPITHELIAL CELL URINE NONE SEEN /lpf (RARE/1+)
[2024-05-28 00:45] VITALS: BP 136/73; PULSE 96; RESP 20; TEMP 36.78072; O2SAT 100
== END 2024-05-28 00:58 | disposition home or self-care (01) ==
LOC: ER 20:12
DX: R10.84 Generalized abdominal pain (principal); R11.2 Nausea with vomiting, unspecified; J45.909 Unspecified asthma, uncomplicated; E11.9 Type 2 diabetes mellitus without complications; Z98.890 Other specified postprocedural states; Z79.84 Long term (current) use of oral hypoglycemic drugs; Z79.4 Long term (current) use of insulin; Z79.899 Other long term (current) drug therapy; Z88.0 Allergy status to penicillin
CPT/HCPCS: 99285; 74176; 71045; 80053; 81003; 81025; 84703; 85025; 85610; 84484; 36415; 93005; 96372; J1630

== ENCOUNTER 2024-05-30 21:12 | Emergency (ER) | payer OTHER ==
[~2024-05-30] VITALS: Ht 167.6 cm; Wt 68.1 kg
[2024-05-30 21:14] VITALS: O2SAT 100
[2024-05-30 21:21] VITALS: BP 136/78; PULSE 110; RESP 22; TEMP 97.7; O2SAT 100
[2024-05-30] MEDS ORDERED: DICYCLOMINE 10 MG/5 ML ORAL SYR PO STA (21:47)
[2024-05-30 21:53] LABS: BASOPHILS % 0.6 % (0.0-2.0); EOSINOPHILS % 0.1 % (0.0-5.0); HEMATOCRIT. 42.4 % (36.0-48.0); HEMOGLOBIN. 14.7 g/dL (12.0-16.0); LYMPHOCYTES % 23.3 % (20.0-50.0); MEAN CORPUSCULAR HEMOGLOBIN 33.8 pg (28.0-32.0); MEAN CORPUSCULAR HGB CONC 34.7 g/dL (31.0-37.0); MEAN CORPUSCULAR VOLUME 97.4 fL (81.0-99.0); MEAN PLATELET VOLUME 8.2 fl (7.4-10.4); MONOCYTES % 3.2 % (2.0-8.0); NEUTROPHILS % 72.8 % (40.0-76.0); PLATELET 337 x1000/uL (130-400); RED BLOOD CELL COUNT 4.36 mill/uL (4.2-5.4); RED CELL DISTRIBUTION WIDTH 12.7 % (11.6-14.6); WHITE BLOOD COUNT 6.6 x1000/uL (4.5-11.0)
[2024-05-30 22:02] LABS: CHLORIDE 97 mEq/L (98-107); POTASSIUM 3.9 mEq/L (3.5-5.1); SODIUM 130 mEq/L (136-145)
[2024-05-30 22:03] LABS: CALCIUM 10.5 mg/dL (8.7-10.4); CARBON DIOXIDE 24 mEq/L (21-32)
[2024-05-30 22:05] LABS: HCG SCREEN NEGATIVE
[2024-05-30 22:08] LABS: GLUCOSE 315 mg/dL (70-105); UREA NITROGEN BLOOD 12 mg/dL (9-23)
[2024-05-30 22:10] LABS: ALANINE AMINOTRANSFERASE 25 IU/L (10-49); ALBUMIN 4.8 g/dL (3.2-4.8); ASPARTATE AMINOTRANSFERASE 16 IU/L (<34); BILIRUBIN DIRECT 0.2 mg/dL (<=3.0); BILIRUBIN TOTAL 0.6 mg/dL (0.1-1.0); ETHANOL BLOOD < 10 mg/dL (<10); PROTEIN TOTAL 7.5 g/dL (6.0-8.3)
[2024-05-30] MEDS: SODIUM CHLORIDE 0.9% 1,000 ML IV ONE (22:37)
[2024-05-30] MEDS: DICYCLOMINE HCL 10MG CAPSULE PO NR (22:51)
[2024-05-30] MEDS: MAGNESIUM/ALUMINUM HYDROXIDE/SIMETHICONE 30ML UDC PO STA (22:52)
[2024-05-30] MEDS: HALOPERIDOL LACTATE 5MG/ML VIAL IM ONE (22:52)
[2024-05-30 22:56] LABS: CLARITY URINE CLEAR (CLEAR); COLOR URINE YELLOW (YELLOW); GLUCOSE URINE 3+ (NEGATIVE); KETONES URINE 4+ (NEGATIVE); LEUKOCYTE ESTERASE URINE NEGATIVE (NEGATIVE); NITRITE URINE NEGATIVE (NEGATIVE); OCCULT BLOOD URINE NEGATIVE (NEGATIVE); PROTEIN URINE 1+ (NEGATIVE); SPECIFIC GRAVITY URINE 1.043 (1.005-1.030)
[2024-05-30 23:27] LABS: BACTERIA URINE 1+; RBC URINE 0-2 /hpf (0-2); SQUAMOUS EPITHELIAL CELL URINE 1+ /lpf (RARE/1+); WBC URINE 0-2 /hpf (0-2)
[2024-05-30] MEDS: FAMOTIDINE 20MG/2ML VIAL IV NR (23:54)
[2024-05-30] MEDS: FAMOTIDINE 20MG/2ML VIAL IV STA (23:55)
== END 2024-05-31 00:46 | disposition home or self-care (01) ==
LOC: ER 21:12
DX: F12.188 Cannabis abuse with other cannabis-induced disorder (principal); K31.84 Gastroparesis; Z79.899 Other long term (current) drug therapy; Z88.0 Allergy status to penicillin; Z98.890 Other specified postprocedural states
CPT/HCPCS: 80076; 80048; 81003; 81025; 80320; 84703; 83690; 85025; 36415; 93005; 96361; 96372; 96374; 99284; J3490; J1630; J7030; Z7610; G0480

== ENCOUNTER 2024-09-13 01:37 | Inpatient (IN) | payer MEDICAID, OTHER ==
[~2024-09-13] VITALS: Ht 165.1 cm; Wt 68.5 kg
[~2024-09-13 01:37] MED LIST changes: +GABA-1180 PO; -GABA-532 PO
[2024-09-13] MEDS: ACETAMINOPHEN 1000MG/100ML 100 ML IV ONE (02:20)
[2024-09-13] MEDS: METOCLOPRAMIDE HCL 10MG/2ML VIAL IV ONE (02:20)
[2024-09-13] MEDS: SODIUM CHLORIDE 0.9% 1,000 ML IV ONE (02:20)
[2024-09-13 02:28] LABS: PROTHROMBIN TIME 10.9 sec (9.6-11.0)
[2024-09-13 02:44] LABS: BASOPHILS % 0.3 % (0.0-2.0); CARBON DIOXIDE 19 mEq/L (21-32); CHLORIDE 99 mEq/L (98-107); HEMATOCRIT. 41.3 % (36.0-48.0); HEMOGLOBIN. 14.2 g/dL (12.0-16.0); LYMPHOCYTES % 8.9 % (20.0-50.0); MEAN CORPUSCULAR HGB CONC 34.3 g/dL (31.0-37.0); MEAN CORPUSCULAR VOLUME 96.3 fL (81.0-99.0); MEAN PLATELET VOLUME 8.9 fl (7.4-10.4); MONOCYTES % 2.4 % (2.0-8.0); NEUTROPHILS % 88.4 % (40.0-76.0); PLATELET 269 x1000/uL (130-400); POTASSIUM 4.2 mEq/L (3.5-5.1); RED BLOOD CELL COUNT 4.29 mill/uL (4.2-5.4); RED CELL DISTRIBUTION WIDTH 13.1 % (11.6-14.6); SODIUM 133 mEq/L (136-145); WHITE BLOOD COUNT 9.4 x1000/uL (4.5-11.0)
[2024-09-13 02:45] LABS: CALCIUM 10.8 mg/dL (8.7-10.4)
[2024-09-13 02:49] LABS: CREATININE 1.1 mg/dL (0.6-1.0)
[2024-09-13 02:50] LABS: UREA NITROGEN BLOOD 16 mg/dL (9-23)
[2024-09-13 02:51] LABS: ALANINE AMINOTRANSFERASE 31 IU/L (10-49); ALBUMIN 5.2 g/dL (3.2-4.8); ASPARTATE AMINOTRANSFERASE 28 IU/L (<34)
[2024-09-13 02:52] LABS: BILIRUBIN DIRECT 0.2 mg/dL (<=3.0); BILIRUBIN TOTAL 0.9 mg/dL (0.1-1.0); PROTEIN TOTAL 7.8 g/dL (6.0-8.3)
[2024-09-13 02:57] LABS: HCG SCREEN NEGATIVE
[2024-09-13] MEDS ORDERED: SODIUM CHLORIDE 0.9% 1,000 ML IV NR (03:15)
[2024-09-13 03:46] LABS: ETHANOL BLOOD < 10 mg/dL (<10)
[2024-09-13 03:47] LABS: GLUCOSE 431 mg/dL (70-105)
[2024-09-13] MEDS ORDERED: KCL 20MEQ/100ML PREMIX 100 ML IV PRN (04:15)
[2024-09-13] MEDS ORDERED: SODIUM CHLORIDE 0.9% 1,000 ML IV PRN (04:15)
[2024-09-13] MEDS ORDERED: BLOOD SUGAR DIAGNOSTIC STRIP TEST PRN (04:15)
[2024-09-13] MEDS ORDERED: INSULIN REGULAR 100U/100ML PMX 100 ML IV SCH (04:15)
[2024-09-13 04:54] LABS: CHLORIDE 102 mEq/L (98-107); POTASSIUM 4.4 mEq/L (3.5-5.1); SODIUM 135 mEq/L (136-145)
[2024-09-13 04:55] LABS: CARBON DIOXIDE 24 mEq/L (21-32)
[2024-09-13 05:02] LABS: PHOSPHORUS 3.8 mg/dL (2.5-4.9)
[2024-09-13] MEDS: BLOOD SUGAR DIAGNOSTIC STRIP TEST SCH ×2 (05:30→13:50)
[2024-09-13] MEDS: MORPHINE SULFATE 4 MG/ML INJ (FOR IV/IM USE) IV NR (05:30)
[2024-09-13] MEDS: METOCLOPRAMIDE HCL 10MG/2ML VIAL IV NR (05:30)
[2024-09-13] MEDS: INSULIN REGULAR (HUMULIN R) 1000UNITS/10ML VIAL IV NR (05:46)
[2024-09-13 06:26] LABS: CLARITY URINE CLEAR (CLEAR); COLOR URINE YELLOW (YELLOW); GLUCOSE URINE 3+ (NEGATIVE); KETONES URINE 3+ (NEGATIVE); LEUKOCYTE ESTERASE URINE NEGATIVE (NEGATIVE); NITRITE URINE NEGATIVE (NEGATIVE); OCCULT BLOOD URINE NEGATIVE (NEGATIVE); PH URINE 5.5 (4.5-8.0); PROTEIN URINE NEGATIVE (NEGATIVE); SPECIFIC GRAVITY URINE 1.039 (1.005-1.030); UROBILINOGEN URINE 0.2 E.U./dL (0.2-1.0)
[2024-09-13 06:31] LABS: BG CARBOXYHEMOGLOBIN 2.4 % (0.5-1.5); BG DEOXYHEMOGLOBIN 3.3 % (0.0-5.0); BG HCO3 ACT 20.6 mmol/L (21.0-28.0); BG METHEMOGLOBIN 0.1 % (0.5-1.5); BG OXYGEN SATURATION 96.6 % (94.0-98.0); BG OXYHEMOGLOBIN 94.2 % (94.0-98.0); BG PCO2 36.6 mmHg (32.0-45.0); BG PH 7.369 (7.350-7.450); BG PO2 89.6 mmHg (83.0-108.0); BG SAMPLE SITE RIGHT RADIAL; BG TOTAL HEMOGLOBIN 13.7 g/dL (12.0-16.0); BG VENT MODE ROOM AIR
[2024-09-13 06:51] LABS: *AMPHETAMINES SCREEN URINE NEGATIVE (NEGATIVE); *BARBITURATES SCREEN URINE NEGATIVE (NEGATIVE); *BENZODIAZEPINES SCREEN URINE NEGATIVE (NEGATIVE); *COCAINE SCREEN URINE NEGATIVE (NEGATIVE); CANNABINOID URINE SCREEN PRESUMPTIVE POSITIVE (NEGATIVE); ECSTASY MDMA SCREEN URINE NEGATIVE (NEGATIVE); METHADONE URINE SCREEN NEGATIVE (NEGATIVE); OPIATES URINE SCREEN NEGATIVE (NEGATIVE); PHENCYCLIDINE URINE SCREEN NEGATIVE (NEGATIVE)
[2024-09-13 07:51] LABS: BACTERIA URINE 1+; RBC URINE 0-2 /hpf (0-2); SQUAMOUS EPITHELIAL CELL URINE 1+ /lpf (RARE/1+); WBC URINE 0-2 /hpf (0-2); YEAST URINE NONE SEEN
[2024-09-13] MEDS: INSULIN REGULAR 100U/100ML PMX 100 ML IV SCH (08:00)
[2024-09-13 09:02] LABS: CHLORIDE 106 mEq/L (98-107); POTASSIUM 3.5 mEq/L (3.5-5.1); SODIUM 141 mEq/L (136-145)
[2024-09-13 09:03] LABS: CALCIUM 10.1 mg/dL (8.7-10.4); CARBON DIOXIDE 24 mEq/L (21-32)
[2024-09-13 09:08] LABS: CREATININE 0.8 mg/dL (0.6-1.0); GLUCOSE 55 mg/dL (70-105); UREA NITROGEN BLOOD 14 mg/dL (9-23)
[2024-09-13 09:14] LABS: BASOPHILS % 0.8 % (0.0-2.0); HEMATOCRIT. 39.6 % (36.0-48.0); HEMOGLOBIN. 13.6 g/dL (12.0-16.0); LYMPHOCYTES % 25.2 % (20.0-50.0); MEAN CORPUSCULAR HEMOGLOBIN 33.1 pg (28.0-32.0); MEAN CORPUSCULAR HGB CONC 34.4 g/dL (31.0-37.0); MEAN CORPUSCULAR VOLUME 96.2 fL (81.0-99.0); MEAN PLATELET VOLUME 8.1 fl (7.4-10.4); MONOCYTES % 7.1 % (2.0-8.0); NEUTROPHILS % 66.9 % (40.0-76.0); PLATELET 293 x1000/uL (130-400); RED BLOOD CELL COUNT 4.12 mill/uL (4.2-5.4); RED CELL DISTRIBUTION WIDTH 13.2 % (11.6-14.6); WHITE BLOOD COUNT 9.9 x1000/uL (4.5-11.0)
[2024-09-13] MEDS: DEXTROSE 50% WATER 50ML SYRINGE IV PRN (09:46)
[2024-09-13 12:00] VITALS: BP 136/73; PULSE 91; RESP 18; TEMP 36.61404; O2SAT 100
[2024-09-13] MEDS ORDERED: MAGNESIUM/ALUMINUM HYDROXIDE/SIMETHICONE 30ML UDC PO PRN (12:45)
[2024-09-13] MEDS ORDERED: CLONIDINE 0.1MG TABLET PO PRN (12:45)
[2024-09-13] MEDS ORDERED: DEXTROSE 50% WATER 50ML SYRINGE IV PRN ×2 (12:45)
[2024-09-13] MEDS ORDERED: DOCUSATE SODIUM 100MG CAPSULE PO PRN (12:45)
[2024-09-13] MEDS ORDERED: IPRATROPIUM/ALBUTEROL 0.5-3(2.5)MG/3ML NEB NEB PRN (12:45)
[2024-09-13] MEDS ORDERED: ONDANSETRON HCL 4MG/2ML INJ IV PRN (12:45)
[2024-09-13 12:59] VITALS: BP 136/73; PULSE 91; RESP 18; TEMP 36.6404
[2024-09-13] MEDS: INSULIN LISPRO 100 UNITS/ML SUBCUT SCH (13:08)
[2024-09-13] MEDS: HYDROCODONE/ACETAMINOPHEN 5/325MG TABLET PO PRN (13:50)
[2024-09-13 16:00] VITALS: BP 119/70; PULSE 87; RESP 19; TEMP 36.44736; O2SAT 100
[2024-09-13] MEDS: SODIUM CHLORIDE 0.9% 1,000 ML IV SCH (16:21)
[2024-09-13] MEDS: PANTOPRAZOLE SODIUM 40 MG/VIAL IV SCH (16:22)
[2024-09-13] MEDS: ENOXAPARIN 40MG/0.4ML SYR SUBCUT SCH (16:23)
[2024-09-13] MEDS ORDERED: ZOLPIDEM TARTRATE 5MG TABLET PO PRN (21:00)
[2024-09-13] MEDS: DOCUSATE SODIUM 100MG CAPSULE PO SCH (21:37)
[2024-09-13] MEDS ORDERED: NALOXONE HCL 0.4MG/ML VIAL IV PRN (22:15)
[2024-09-14 08:00] VITALS: BP 124/80; PULSE 78; RESP 17; TEMP 36.72516; O2SAT 100
[2024-09-14] MEDS: BISACODYL 5MG TABLET PO SCH (08:48)
[2024-09-14 12:00] VITALS: BP 113/74; PULSE 79; RESP 18; TEMP 36.50292; O2SAT 100
[2024-09-14] MEDS: MORPHINE SULFATE 2 MG/ML INJ (NOT FOR IM USE) IV PRN (13:48)
[2024-09-14 16:00] VITALS: BP 126/69; PULSE 99; RESP 17; TEMP 37.72524; O2SAT 100
[2024-09-14 18:51] VITALS: BP 126/77; PULSE 78; TEMP 98; O2SAT 98
[2024-09-14 20:00] VITALS: BP 118/64; PULSE 82; RESP 20; TEMP 36.33624; O2SAT 100
[2024-09-15] VITALS: BP 123/69; PULSE 88; RESP 20; TEMP 36.55848; O2SAT 100
[2024-09-15 04:00] VITALS: BP 136/75; PULSE 89; RESP 18; TEMP 36.55848; O2SAT 99
[2024-09-15] MEDS: ACETAMINOPHEN 325MG TABLET PO PRN (09:07)
== END 2024-09-15 10:35 | disposition home or self-care (01) | DRG 48 ==
LOC: ER 01:37 → 6EST 04:11 → EDBEDREQSVC 05:06 → EDBEDREQ 05:06 → EDBEDREQTM 05:06 → EDBEDREQSVC 11:57
PROVIDERS: ADMIT Internal Medicine; ATTEND Internal Medicine
DX: E11.43 Type 2 diabetes mellitus with diabetic autonomic (poly)neuropathy (principal); K31.84 Gastroparesis; E11.10 Type 2 diabetes mellitus with ketoacidosis without coma; Z79.4 Long term (current) use of insulin; Z88.0 Allergy status to penicillin
CPT/HCPCS: 36415; 36600; 80048; 80051; 80076; 80305; 80320; 81003; 82375; 82805; 82962; 83735; 83930; 84100; 84703; 85025; 93970; 99291; A4663; J1650; J1815; J2270; J2470; J2765; J7030; G0480; J0131

== ENCOUNTER 2024-10-05 22:11 | Emergency (ER) | payer MEDICAID ==
[~2024-10-05] VITALS: Ht 165.1 cm; Wt 63.0 kg
[~2024-10-05 22:11] MED LIST changes: -CYCL10TA21 MT; -DOXY100C5 MT; -DOXY100C74 MT; -NAPR-681 PO; -ONDA-239 PO; -SULF1TAB48 MT
[2024-10-05 22:53] VITALS: TEMP 38.1
[2024-10-05] MEDS ORDERED: METHYLPREDNISOLONE 40MG/ML INJ IV ONE (23:15)
[2024-10-06] MEDS ORDERED: IPRATROPIUM/ALBUTEROL 0.5-3(2.5)MG/3ML NEB HHN NR (01:30)
[2024-10-06 01:41] VITALS: PULSE 71; RESP 18; O2SAT 96
[2024-10-06] MEDS: IPRATROPIUM/ALBUTEROL 0.5-3(2.5)MG/3ML NEB HHN ONE (01:41)
[2024-10-06] MEDS: METHYLPREDNISOLONE SOD SUCC 125MG/2ML (ACT-O-VIAL) IV NR (01:46)
[2024-10-06] MEDS ORDERED: PRED5TAB48 MT (02:18)
[2024-10-06 03:20] VITALS: BP 116/77; PULSE 104; RESP 18; O2SAT 100
== END 2024-10-06 03:20 | disposition home or self-care (01) ==
LOC: ER 22:11
DX: R05.9 Cough, unspecified (principal); R09.81 Nasal congestion; E11.9 Type 2 diabetes mellitus without complications; J45.909 Unspecified asthma, uncomplicated; Z88.0 Allergy status to penicillin; Z98.890 Other specified postprocedural states; Z79.899 Other long term (current) drug therapy
CPT/HCPCS: 71045; 99283; 94640; 94664; 94070; 98960; 96374; J2919; Z7610 ×2; J2920

== ENCOUNTER 2024-12-12 16:38 | Emergency (ER) | payer MEDICAID ==
[~2024-12-12] VITALS: Ht 165.1 cm; Wt 60.0 kg
[~2024-12-12 16:38] MED LIST changes: +PRED5TAB48 MT
[2024-12-12 16:46] VITALS: O2SAT 100
[2024-12-12] MEDS ORDERED: ONDANSETRON HCL 4MG/2ML INJ IV STA (17:35)
[2024-12-12] MEDS ORDERED: PANTOPRAZOLE SODIUM 40 MG/VIAL IV STA (17:35)
[2024-12-12] MEDS: SODIUM CHLORIDE 0.9% 1,000 ML IV ONE (17:45)
[2024-12-12 18:00] LABS: BASOPHILS % 0.9 % (0.0-2.0); EOSINOPHILS % 0.1 % (0.0-5.0); HEMATOCRIT. 38.1 % (36.0-48.0); HEMOGLOBIN. 12.9 g/dL (12.0-16.0); LYMPHOCYTES % 24.4 % (20.0-50.0); MEAN CORPUSCULAR HEMOGLOBIN 31.8 pg (28.0-32.0); MEAN CORPUSCULAR HGB CONC 33.9 g/dL (31.0-37.0); MEAN CORPUSCULAR VOLUME 93.7 fL (81.0-99.0); MEAN PLATELET VOLUME 7.7 fl (7.4-10.4); MONOCYTES % 5.3 % (2.0-8.0); NEUTROPHILS % 69.3 % (40.0-76.0); PLATELET 351 x1000/uL (130-400); RED BLOOD CELL COUNT 4.07 mill/uL (4.2-5.4); RED CELL DISTRIBUTION WIDTH 13.4 % (11.6-14.6); WHITE BLOOD COUNT 5.2 x1000/uL (4.5-11.0)
[2024-12-12 18:10] LABS: CHLORIDE 101 mEq/L (98-107); POTASSIUM 4.1 mEq/L (3.5-5.1); PROTHROMBIN TIME 10.9 sec (9.6-11.0); SODIUM 135 mEq/L (136-145)
[2024-12-12 18:11] LABS: CALCIUM 9.7 mg/dL (8.7-10.4); CARBON DIOXIDE 26 mEq/L (21-32)
[2024-12-12 18:16] LABS: CREATININE 0.7 mg/dL (0.6-1.0); GLUCOSE 237 mg/dL (70-105)
[2024-12-12 18:17] LABS: UREA NITROGEN BLOOD 11 mg/dL (9-23)
[2024-12-12 18:18] LABS: ALANINE AMINOTRANSFERASE 15 IU/L (10-49); ALBUMIN 4.4 g/dL (3.2-4.8); ASPARTATE AMINOTRANSFERASE 11 IU/L (<34)
[2024-12-12 18:19] LABS: BILIRUBIN DIRECT 0.1 mg/dL (<=3.0); BILIRUBIN TOTAL 0.5 mg/dL (0.1-1.0); PROTEIN TOTAL 7.4 g/dL (6.0-8.3)
[2024-12-12 18:20] LABS: HCG SCREEN NEGATIVE
[2024-12-12 18:44] LABS: CLARITY URINE CLEAR (CLEAR); COLOR URINE YELLOW (YELLOW); GLUCOSE URINE 3+ (NEGATIVE); KETONES URINE 4+ (NEGATIVE); LEUKOCYTE ESTERASE URINE NEGATIVE (NEGATIVE); NITRITE URINE NEGATIVE (NEGATIVE); OCCULT BLOOD URINE NEGATIVE (NEGATIVE); PH URINE 6.5 (4.5-8.0); PROTEIN URINE 1+ (NEGATIVE); SPECIFIC GRAVITY URINE 1.037 (1.005-1.030)
[2024-12-12] MEDS ORDERED: DIPHENHYDRAMINE 50MG/ML VIAL IV ONE (18:45)
[2024-12-12] MEDS ORDERED: HALOPERIDOL LACTATE 5MG/ML VIAL IM ONE (18:45)
[2024-12-12 18:59] LABS: *AMPHETAMINES SCREEN URINE NEGATIVE (NEGATIVE)
[2024-12-12 19:00] LABS: *BARBITURATES SCREEN URINE NEGATIVE (NEGATIVE); *BENZODIAZEPINES SCREEN URINE NEGATIVE (NEGATIVE); *COCAINE SCREEN URINE NEGATIVE (NEGATIVE); CANNABINOID URINE SCREEN PRESUMPTIVE POSITIVE (NEGATIVE); ECSTASY MDMA SCREEN URINE NEGATIVE (NEGATIVE); METHADONE URINE SCREEN NEGATIVE (NEGATIVE); OPIATES URINE SCREEN NEGATIVE (NEGATIVE); PHENCYCLIDINE URINE SCREEN NEGATIVE (NEGATIVE)
[2024-12-12 19:14] LABS: BACTERIA URINE 1+; SQUAMOUS EPITHELIAL CELL URINE 2+ /lpf (RARE/1+); WBC URINE 0-2 /hpf (0-2)
[2024-12-12] MEDS: PANTOPRAZOLE SODIUM 40 MG/VIAL IV NR (20:26)
[2024-12-12] MEDS: DIPHENHYDRAMINE 50MG/ML VIAL IV NR (20:26)
[2024-12-12] MEDS: ONDANSETRON HCL 4MG/2ML INJ IV NR (20:26)
[2024-12-12] MEDS: HALOPERIDOL LACTATE 5MG/ML VIAL IM NR (20:26)
[2024-12-12] MEDS: MORPHINE SULFATE 4 MG/ML INJ (FOR IV/IM USE) IV ONE (20:37)
[2024-12-12] MEDS ORDERED: OMEP40CA20 MT (20:41)
[2024-12-12 21:26] VITALS: BP 118/89; PULSE 98; RESP 20; TEMP 36.7; O2SAT 100
== END 2024-12-12 21:30 | disposition home or self-care (01) ==
LOC: ER 16:38
DX: K31.84 Gastroparesis (principal); K29.70 Gastritis, unspecified, without bleeding; F12.90 Cannabis use, unspecified, uncomplicated; E11.43 Type 2 diabetes mellitus with diabetic autonomic (poly)neuropathy; E11.65 Type 2 diabetes mellitus with hyperglycemia; J45.909 Unspecified asthma, uncomplicated; Z79.899 Other long term (current) drug therapy; Z98.890 Other specified postprocedural states; Z79.4 Long term (current) use of insulin; Z87.891 Personal history of nicotine dependence; Z79.84 Long term (current) use of oral hypoglycemic drugs; Z88.0 Allergy status to penicillin
CPT/HCPCS: 99285; 74176; 96374; 96375; 96361; 80076; 80305; 80048; 81003; 81025; 84703; 83690; 85025; 85610; 36415; 96372; J1200; J1630; J2405; J2470; J2270; J7030

== ENCOUNTER 2025-02-21 19:02 | Emergency (ER) | payer MEDICAID ==
[~2025-02-21] VITALS: Ht 170.2 cm; Wt 62.0 kg
[2025-02-21 19:36] VITALS: O2SAT 99
[2025-02-21 20:14] LABS: BASOPHILS % 0.5 % (0.0-2.0); EOSINOPHILS % 0.4 % (0.0-5.0); HEMATOCRIT. 41.8 % (36.0-48.0); HEMOGLOBIN. 14.2 g/dL (12.0-16.0); LYMPHOCYTES % 22.6 % (20.0-50.0); MEAN PLATELET VOLUME 7.8 fl (7.4-10.4); MONOCYTES % 3.4 % (2.0-8.0); NEUTROPHILS % 73.1 % (40.0-76.0); PLATELET 288 x1000/uL (130-400); RED BLOOD CELL COUNT 4.41 mill/uL (4.2-5.4); RED CELL DISTRIBUTION WIDTH 13.5 % (11.6-14.6)
[2025-02-21 20:25] LABS: CREATININE 0.9 mg/dL (0.6-1.0); UREA NITROGEN BLOOD 13 mg/dL (9-23)
[2025-02-21] MEDS: ONDANSETRON 4MG ODT PO ONE (22:50)
[2025-02-21] MEDS: FAMOTIDINE 20MG TABLET PO ONE (22:51)
[2025-02-21] MEDS: METOCLOPRAMIDE HCL 10MG/2ML VIAL IM ONE (22:51)
[2025-02-21 22:56] LABS: HCG SCREEN NEGATIVE
[2025-02-21 23:02] LABS: ASPARTATE AMINOTRANSFERASE 14 IU/L (<34); BILIRUBIN DIRECT 0.1 mg/dL (<=3.0); BILIRUBIN TOTAL 0.6 mg/dL (0.1-1.0); PROTEIN TOTAL 7.5 g/dL (6.0-8.3)
[2025-02-22 01:17] VITALS: BP 100/65; PULSE 99; RESP 18; TEMP 37; O2SAT 100
== END 2025-02-22 01:26 | disposition home or self-care (01) ==
LOC: ER 19:02
DX: R10.13 Epigastric pain (principal); R11.2 Nausea with vomiting, unspecified; E11.9 Type 2 diabetes mellitus without complications; F12.90 Cannabis use, unspecified, uncomplicated; Z79.899 Other long term (current) drug therapy; Z88.0 Allergy status to penicillin
CPT/HCPCS: 99285; 80076; 80048; 84703; 83690; 85025; 36415; 93005; 96372; 74176; Q0162; J2765